=== PATIENT | male | born 1950 | race Caucasian/White ===

== ENCOUNTER 2023-09-15 20:03 | Emergency (ER) | payer MEDICARE, OTHER ==
[~2023-09-15] VITALS: Ht 177 cm; Wt 99.7 kg
[2023-09-15] MEDS ORDERED: KETOROLAC INJ 30 MG/ML VIAL IVP STA (20:17)
[2023-09-15] MEDS ORDERED: LACTATED RINGERS 1,000 ML 1,000 ML IV ONE (20:30)
[2023-09-15] MEDS ORDERED: ONDANSETRON INJECTION 4 MG/2 ML (SDV) IVP ONE ×2 (20:30→21:00)
[2023-09-15 20:35] LABS: BASOPHILS % (AUTO) 0 % (0-10); EOSINOPHILS # (AUTO) 0.1 10^3/uL (0.0-0.3); EOSINOPHILS % (AUTO) 1 % (0-10); HEMATOCRIT 46 % (40-54); HEMOGLOBIN 16.2 g/dL (13.3-17.7); LYMPHOCYTES # (AUTO) 1.4 10^3/uL (1.0-4.0); LYMPHOCYTES % (AUTO) 14 % (12-44); MEAN CORPUSCULAR HEMOGLOBIN 33 pg (25-34); MEAN CORPUSCULAR HGB CONC 36 g/dL (32-36); MEAN CORPUSCULAR VOLUME 93 fL (80-99); MEAN PLATELET VOLUME 9.4 fL (9.0-12.2); MONOCYTES # (AUTO) 0.7 10^3/uL (0.0-1.0); MONOCYTES % (AUTO) 6 % (0-12); NEUTROPHILS # (AUTO) 8.3 10^3/uL (1.8-7.8); NEUTROPHILS % (AUTO) 79 % (42-75); PLATELET COUNT 205 10^3/uL (130-400); WHITE BLOOD COUNT 10.5 10^3/uL (4.3-11.0)
[2023-09-15 20:55] LABS: ERYTHROCYTE SEDIMENTATION RATE 15 MM/HR (0-30)
[2023-09-15 20:56] LABS: AMORPHOUS SEDIMENT,UR FEW AMOR PHOSPHATE /LPF; BACTERIA,URINE NEGATIVE /HPF; BILIRUBIN,URINE NEGATIVE (NEGATIVE); CLARITY,URINE CLEAR; COLOR,URINE YELLOW; GLUCOSE, URINE (UA) NEGATIVE (NEGATIVE); KETONES,URINE NEGATIVE (NEGATIVE); LEUKOCYTE ESTERASE ,URINE NEGATIVE (NEGATIVE); NITRITE,URINE NEGATIVE (NEGATIVE); PROTEIN,URINE 1+ (NEGATIVE); SQUAMOUS EPITHELIAL CELL,UR 0-2 /HPF
[2023-09-15] MEDS ORDERED: fentaNYL INJECTION 100 MCG/2 ML VIAL IVP ONE (21:00)
[2023-09-15 21:03] LABS: ALANINE AMINOTRANSFERASE 17 U/L (0-55); ALBUMIN 4.8 GM/DL (3.2-4.5); ALKALINE PHOSPHATASE 71 U/L (40-136); AMYLASE 76 U/L (25-125); BILIRUBIN,TOTAL 0.8 MG/DL (0.1-1.0); BUN/CREATININE RATIO 13; CALCIUM 9.9 MG/DL (8.5-10.1); CARBON DIOXIDE 24 MMOL/L (21-32); CHLORIDE 104 MMOL/L (98-107); CREATININE SERUM 1.74 MG/DL (0.60-1.30); GFR ESTIMATED 41; GLUCOSE 135 MG/DL (70-105); LIPASE 93 U/L (8-78); MAGNESIUM 2.3 MG/DL (1.6-2.4); POTASSIUM 3.9 MMOL/L (3.6-5.0); SODIUM 140 MMOL/L (135-145); TOTAL PROTEIN 8.4 GM/DL (6.4-8.2)
--- NOTE | 2023-09-15 21:15 | Diagnostic Imaging Report ---
EXAMINATION: CT abdomen and pelvis without contrast. TECHNIQUE: Multiple contiguous axial images were obtained through the abdomen and pelvis without the use of intravenous contrast. All CT scans use one or more of the following dose optimizing techniques: automated exposure control, MA and/or KvP adjustment based on patient size and exam type or iterative reconstruction. HISTORY: Flank pain, kidney stone suspected. COMPARISON: None available. FINDINGS: Lung bases: The lung bases are clear. Solid organs: The liver is normal. The gallbladder is normal. There is no biliary ductal dilation. Pancreas is normal. Spleen is normal. Adrenal glands are normal. There is moderate right sided hydronephrosis, likely secondary to an obstructing stone in the proximal right ureter measuring up to 0.6 cm. There are additional nonobstructing right renal calculi measuring up to 0.5 cm. The left kidney is unremarkable. There is asymmetric right perinephric stranding which can be secondary to obstruction. Bowel: There is a small hiatal hernia. There is scattered colonic diverticulosis. There is no bowel obstruction. There are no secondary signs of acute appendicitis. Peritoneum: There is no intraperitoneal free fluid or free air. No suspicious lymphadenopathy. Vasculature: Calcification of the aorta without aneurysm. Musculoskeletal: Degenerative changes of the spine without suspicious osseous lesion or compression fracture. Pelvis: The prostate gland is normal. The urinary bladder is normal. IMPRESSION: 1. There is a 0.6 cm stone within the proximal right ureter resulting in moderate right hydronephrosis. 2. Additional nonobstructing right renal calculi measuring up to 0.5 cm. Dictated by: Dictated on workstation # [id number]
--- NOTE | 2023-09-15 21:16 | Diagnostic Imaging Report ---
EXAMINATION: Abdomen, 1 view. HISTORY: Abdominal pain. COMPARISON: None available. FINDINGS: There is a moderate amount of gas and stool throughout the colon. Nonobstructive bowel gas pattern. No radiopaque foreign body. The lung bases are clear. Degenerative changes of the hips and spine. Osseous structures are otherwise intact. IMPRESSION: Moderate stool burden without other acute abnormality in the abdomen. Dictated by: Dictated on workstation # [id number]
--- NOTE | 2023-09-15 21:19 | ED Abdominal Pain ---
General Chief Complaint: Abdominal/GI Problems Stated Complaint: VOMITING/AB PAIN Nursing Triage Note: PATIENT STATES FOR THE LAST HOUR HAS HAD LOWER ABDOMINAL AND BACK PAIN RIGHT SIDED. VOMITTING ALSO. Allergies and Home Medications Allergies Coded Allergies: hydromorphone (Verified Allergy, Unknown, 09/15/23) mirabegron (Verified Allergy, Unknown, 09/15/23) propoxyphene (Verified Allergy, Unknown, 09/15/23) Past Urniudy-Dvpbur-Twbapz Hx Patient Social History Tobacco Use?: No Use of E-Cig and/or Vaping dev: No Substance use?: No Alcohol Use?: No Immunizations Up To Date Influenza Vaccine Up-to-Date: Yes; Up-to-Date First/Initial COVID19 Vaccinat: FIRST FOUR, NONE AFTER Past Medical History Surgery/Hospitalization HX: KIDNEY STONE, APPY Physical Exam Vital Signs Vital Signs - First Documented 09/15/23 20:13 Temp 36.3 Pulse 62 Resp 20 B/P (MAP) 152/78 (102) Pulse Ox 98 O2 Delivery Room Air Capillary Refill : Less Than 3 Seconds Height/Weight/BMI Height: '" Weight: lbs. oz. kg; 31.00 BMI Method: Progress/Results/Core Measures Results/Orders Lab Results Laboratory Tests Test 09/15/23 20:15 09/15/23 20:20 09/15/23 20:29 Range/Units White Blood Count 10.5 4.3-11.0 10^3/uL Red Blood Count 4.91 4.30-5.52 10^6/uL Hemoglobin 16.2 13.3-17.7 g/dL Hematocrit 46 40-54 % Mean Corpuscular Volume 93 80-99 fL Mean Corpuscular Hemoglobin 33 25-34 pg Mean Corpuscular Hemoglobin Concent 36 32-36 g/dL Red Cell Distribution Width 11.9 10.0-14.5 % Platelet Count 205 130-400 10^3/uL Mean Platelet Volume 9.4 9.0-12.2 fL Immature Granulocyte % (Auto) 0 % Neutrophils (%) (Auto) 79 H 42-75 % Lymphocytes (%) (Auto) 14 12-44 % Monocytes (%) (Auto) 6 0-12 % Eosinophils (%) (Auto) 1 0-10 % Basophils (%) (Auto) 0 0-10 % Neutrophils # (Auto) 8.3 H 1.8-7.8 10^3/uL Lymphocytes # (Auto) 1.4 1.0-4.0 10^3/uL Monocytes # (Auto) 0.7 0.0-1.0 10^3/uL Eosinophils # (Auto) 0.1 0.0-0.3 10^3/uL Basophils # (Auto) 0.0 0.0-0.1 10^3/uL Immature Granulocyte # (Auto) 0.0 0.0-0.1 10^3/uL Erythrocyte Sedimentation Rate 15 0-30 MM/HR Sodium Level 140 135-145 MMOL/L Potassium Level 3.9 3.6-5.0 MMOL/L Chloride Level 104 98-107 MMOL/L Carbon Dioxide Level 24 21-32 MMOL/L Anion Gap 12 5-14 MMOL/L Blood Urea Nitrogen 22 H 7-18 MG/DL Creatinine 1.74 H 0.60-1.30 MG/DL Estimat Glomerular Filtration Rate 41 BUN/Creatinine Ratio 13 Glucose Level 135 H 70-105 MG/DL Calcium Level 9.9 8.5-10.1 MG/DL Corrected Calcium 8.5-10.1 MG/DL Magnesium Level 2.3 1.6-2.4 MG/DL Total Bilirubin 0.8 0.1-1.0 MG/DL Aspartate Amino Transf (AST/SGOT) 22 5-34 U/L Alanine Aminotransferase (ALT/SGPT) 17 0-55 U/L Alkaline Phosphatase 71 40-136 U/L Troponin I < 0.028 <0.028 NG/ML C-Reactive Protein High Sensitivity 0.08 0.00-0.50 MG/DL Total Protein 8.4 H 6.4-8.2 GM/DL Albumin 4.8 H 3.2-4.5 GM/DL Amylase Level 76 25-125 U/L Lipase 93 H 8-78 U/L Influenza Type A (RT-PCR) Not Detected Not Detecte Influenza Type B (RT-PCR) Not Detected Not Detecte SARS-CoV-2 RNA (RT-PCR) Not Detected Not Detecte Urine Color YELLOW Urine Clarity CLEAR Urine pH 7.0 5-9 Urine Specific [place] 1.020 1.016-1.022 Urine Protein 1+ H NEGATIVE Urine Glucose (UA) NEGATIVE NEGATIVE Urine Ketones NEGATIVE NEGATIVE Urine Nitrite NEGATIVE NEGATIVE Urine Bilirubin NEGATIVE NEGATIVE Urine Urobilinogen 0.2 < = 1.0 MG/DL Urine Leukocyte Esterase NEGATIVE NEGATIVE Urine RBC (Auto) 3+ H NEGATIVE Urine RBC 10-25 H /HPF Urine WBC NONE /HPF Urine Squamous Epithelial Cells 0-2 /HPF Urine Crystals PRESENT H /LPF Urine Amorphous Sediment FEW MARILUZ PHOSPHATE H /LPF Urine Bacteria NEGATIVE /HPF Urine Casts NONE /LPF Urine Mucus SMALL H /LPF Urine Culture Indicated NO My Orders Orders - SEVEN HO DO Ed Iv/Invasive Line Start (09/15/23 20:12) Ekg Tracing (09/15/23 20:12) Monitor-Rhythm Ecg Trace Only (09/15/23 20:12) Amylase (09/15/23 20:12) Cbc And Automated Diff (09/15/23 20:12) Comprehensive Metabolic Panel (09/15/23 20:12) Hs C Reactive Protein (09/15/23 20:12) Lipase (09/15/23 20:12) Magnesium (09/15/23 20:12) Ua Culture If Indicated (09/15/23 20:12) Erythrocyte Sedimentation Rate (09/15/23 20:12) Troponin I Hector (09/15/23 20:12) Covid 19 Inhouse Test (09/15/23 20:12) Influenza A And B By Pcr (09/15/23 20:12) Abdomen/Kub 1[place] (09/15/23 20:17) Ct Abd/Pelvis Wo(Kidney Stone) (09/15/23 20:17) Ed Iv/Invasive Line Start (09/15/23 20:17) Ondansetron Injection (Ondansetron Inj (09/15/23 20:30) Ed Iv/Invasive Line Start (09/15/23 20:17) Lactated Ringers 1,000 Ml (Lactated Ring (09/15/23 20:30) Ketorolac Injection (Ketorolac Injection (09/15/23 20:17) Fentanyl Injection (Fentanyl Injection (09/15/23 21:00) Ondansetron Injection (Ondansetron Inj (09/15/23 21:00) Rx-Hydrocodone/Apap 5-325 Mg (Rx-Vicodin (09/15/23 21:45) Rx-Naproxen (Rx-Naprosyn) (09/15/23 21:38) Rx-Ondansetron Po (Rx-Zofran Po) (09/15/23 21:38) Tamsulosin Capsule (Flomax Capsule) (09/15/23 21:45) Ciprofloxacin Tablet (Ciprofloxacin Tabl (09/15/23 21:45) Cefdinir Capsule (Cefdinir Capsule) (09/15/23 21:45) Medications Given in ED Current Medications Medications Dose Ordered Sig/Brijesh Route Start Time Stop Time Status Last Admin Dose Admin Fentanyl Citrate 50 mcg ONCE ONCE IVP 09/15/23 21:00 09/15/23 21:01 DC 09/15/23 21:15 50 MCG Lactated Ringer's 1,000 ml @ 0 mls/hr Q0M ONCE IV 09/15/23 20:30 09/15/23 20:31 DC 09/15/23 20:35 0 MLS/HR Ondansetron HCl 4 mg ONCE ONCE IVP 09/15/23 21:00 09/15/23 21:01 DC 09/15/23 21:16 4 MG Ondansetron HCl 8 mg ONCE ONCE IVP 09/15/23 20:30 09/15/23 20:31 DC 09/15/23 20:34 8 MG Vital Signs/I&O 09/15/23 20:13 Temp 36.3 Pulse 62 Resp 20 B/P (MAP) 152/78 (102) Pulse Ox 98 O2 Delivery Room Air Blood Pressure Mean: [address] ABDOMEN/PELVIS--PER RADIOLOGIST REPORT AT 2118 FINDINGS: Lung bases: The lung bases are clear. Solid organs: The liver is normal. The gallbladder is normal. There is no biliary ductal dilation. Pancreas is normal. Spleen is normal. Adrenal glands are normal. There is moderate right sided hydronephrosis, likely secondary to an obstructing stone in the proximal right ureter measuring up to 0.6 cm. There are additional nonobstructing right renal calculi measuring up to 0.5 cm. The left kidney is unremarkable. There is asymmetric right perinephric stranding which can be secondary to obstruction. Bowel: There is a small hiatal hernia. There is scattered colonic diverticulosis. There is no bowel obstruction. There are no secondary signs of acute appendicitis. Peritoneum: There is no intraperitoneal free fluid or free air. No suspicious lymphadenopathy. Vasculature: Calcification of the aorta without aneurysm. Musculoskeletal: Degenerative changes of the spine without suspicious osseous lesion or compression fracture. Pelvis: The prostate gland is normal. The urinary bladder is normal. IMPRESSION: 1. There is a 0.6 cm stone within the proximal right ureter resulting in moderate right hydronephrosis. 2. Additional nonobstructing right renal calculi measuring up to 0.5 cm. Reviewed: Reviewed by Me Departure Impression Primary Impression: Right ureteral stone Additional Impression: Renal insufficiency Disposition: HOME, SELF-CARE Condition: Improved Departure-Patient Inst. Decision time for Depature: 21:40 Referrals: Shena HENLEY MD, WILLIAM J DO (PCP/Family) Primary Care Physician Patient Instructions: Kidney Stones (DC), How to Strain Your Urine, Kidney Stone Diet Add. Discharge Instructions: LOTS OF CLEAR LIQUIDS STRAIN ALL URINE--RETURN ANY STONES TO UROLOGIST OFFICE FOLLOW UP WITH DR. HENLEY, WITH [facility], THIS WEEK FOR FURTHER C ARE--CALL IN THE MORNING TO SCHEDULE AN APPOINTMENT RETURN TO ER IF SYMPTOMS WORSEN All discharge instructions reviewed with patient and/or family. Voiced understanding. Scripts Ketorolac Tromethamine (Ketorolac Tromethamine) 10 Mg Tablet 10 MG PO Q6H for Pain, #15 TAB Prov: SEVEN HO DO 09/15/23 Hydrocodone/Acetaminophen (Hydrocodone-Acetamin 5-325 mg) 5 Mg-325 Mg Tablet 1 EACH PO Q4-6 HOURS PRN for PAIN, #20 TAB Prov: SEVEN HO DO 09/15/23 Ondansetron (Ondansetron Odt) 8 Mg Tab.rapdis 8 MG PO Q4H PRN for NAUSEA/VOMITING, #10 TAB Prov: SEVEN HO K DO 09/15/23 Cefdinir (Cefdinir) 300 Mg Capsule 300 MG PO BID, #20 CAP Prov: SEVEN HO DO 09/15/23 Tamsulosin HCl (Flomax) 0.4 Mg Cap 0.4 MG PO DAILY, #10 CAP Prov: ALLIE HOA K 09/15/23 SEVEN HO DO Sep 15, 2023 21:19
[2023-09-15] MEDS ORDERED: RX-ONDANSETRON 4 MG ODT (ZOFRAN) PPK #4 PO STA (21:38)
[2023-09-15] MEDS ORDERED: RX-NAPROXEN (NAPROSYN) 250 MG TAB PPK#4 PO STA (21:38)
[2023-09-15] MEDS ORDERED: CIPROFLOXACIN 500 MG TABLET PO SCH (21:45)
[2023-09-15] MEDS ORDERED: CEFDINIR 300 MG CAPSULE PO ONE (21:45)
[2023-09-15] MEDS ORDERED: TAMSULOSIN 0.4 MG (FLOMAX) CAP PO SCH (21:45)
[2023-09-15] MEDS ORDERED: ONDA8TAB13 PO (21:47)
[2023-09-15] MEDS ORDERED: KETO10TA PO (21:47)
[2023-09-15] MEDS ORDERED: TMSL.4C PO (21:47)
[2023-09-15] MEDS ORDERED: ACHD5005 PO (21:47)
[2023-09-15] MEDS ORDERED: CEFD300C3 PO (21:47)
[2023-09-15 21:57] VITALS: BP 145/86
== END 2023-09-15 21:58 | disposition home or self-care (01) ==
LOC: ER 20:07
DX: N28.9 Disorder of kidney and ureter, unspecified (principal); N13.2 Hydronephrosis with renal and ureteral calculous obstruction
CPT/HCPCS: 36415; 74018; 74176; 80053; 81000; 82150; 83690; 83735; 84484; 85025; 85652; 86141; 87636; 93005; 93041; 96361; 96374; 96375; 96376

== ENCOUNTER → 2023-09-20 | Outpatient (CLI) | payer MEDICARE, OTHER ==
[~2023-09-20] MED LIST: ACHD5005 PO; CEFD300C3 PO; KETO10TA PO; ONDA8TAB13 PO; TMSL.4C PO
--- NOTE | 2023-09-20 17:10 | Diagnostic Imaging Report ---
INDICATION: Nephrolithiasis. COMPARISON: Correlated with CT 09/15/2013. FINDINGS: Right ureteral calculus projects just above the right L4 lumbar transverse process, unchanged in orientation from the prior CT. IMPRESSION: Right ureteral stone unchanged from prior CT. Dictated by: Dictated on workstation # [id number]
== END ==
LOC: RAD 10:21
PROVIDERS: ATTEND Internal Medicine
DX: N20.1 Calculus of ureter (principal)
CPT/HCPCS: 74018

== ENCOUNTER → 2023-10-07 | Outpatient (CLI) | payer MEDICARE, OTHER ==
--- NOTE | 2023-10-07 11:14 | Diagnostic Imaging Report ---
PROCEDURE: CT abdomen and pelvis without contrast. TECHNIQUE: Multiple contiguous axial images were obtained through the abdomen and pelvis without the use of intravenous contrast. Auto Exposure Controls were utilized during the CT exam to meet ALARA standards for radiation dose reduction. INDICATION: Abdominal pain. Recent CT demonstrated right-sided kidney stones as well as a proximal right ureteric stone. Comparison is made with prior CT from 09/15/2023. FINDINGS: The lung bases are clear. The liver and gallbladder are unremarkable. The pancreas and spleen are unremarkable. No adrenal mass is identified. Left kidney is unremarkable. Several small nonobstructing calculi in the upper pole of the right kidney are again noted and similar to prior exam. The previously noted proximal right ureteric calculus is now located in the mid right ureter. The amount of hydronephrosis has improved. The bladder is unremarkable. Aorta is nonaneurysmal. Bowel loops are normal in caliber. There is diverticulosis of the sigmoid and descending colon, but no evidence of acute diverticulitis. There is no ascites. Prostate is enlarged. There are small fat-containing inguinal hernias bilaterally. IMPRESSION: 1. Previously noted proximal right ureteric calculus is now located in the mid right ureter. There continues to be mild hydronephrosis; however, this has significantly improved since prior CT from 09/15/2023. 2. Nonobstructing right-sided nephrolithiasis. 3. Uncomplicated diverticulosis. Dictated by: Dictated on workstation # [id number]
== END ==
LOC: RAD 09:03
PROVIDERS: ATTEND Specialist
DX: N13.2 Hydronephrosis with renal and ureteral calculous obstruction (principal); K57.90 Diverticulosis of intestine, part unspecified, without perforation or abscess without bleeding
CPT/HCPCS: 74176

== ENCOUNTER → 2023-10-14 | Outpatient (CLI) | payer MEDICARE, OTHER ==
--- NOTE | 2023-10-14 11:19 | Diagnostic Imaging Report ---
INDICATION: History of renal calculus. COMPARISON: CT dated 10/07/2023. FINDINGS: Two frontal radiographic views of the abdomen were obtained. Subtle extraosseous calcifications are noted projecting over the superior pole of the right renal shadow and are felt to correspond to calculi seen on the previously performed CT abdomen/pelvis from 10/07/2023. No unexpected radiopaque foreign bodies are seen. Small bowel loops are nondilated. Mild to moderate colonic air and stool are noted. Osseous structures show no acute abnormalities. IMPRESSION: 1. Nonobstructed small bowel gas pattern. 2. Probable right-sided nephrolithiasis. Dictated by: Dictated on workstation # [id number]
== END ==
LOC: RAD 09:04
PROVIDERS: ATTEND Specialist
DX: N20.0 Calculus of kidney (principal)
CPT/HCPCS: 74018